=== PATIENT | male | born 1970 | race Caucasian/White ===

== ENCOUNTER 2024-11-09 06:26 | Day surgery (SDC) | payer OTHER, SELFPAY | END 2024-11-09 11:02 | disposition home or self-care (01) | LOC: GI 06:26 | PROVIDERS: ATTENDING PHYSICIAN Internal Medicine Gastroenterology | DX: Z12.11 Encounter for screening for malignant neoplasm of colon (principal); D12.2 Benign neoplasm of ascending colon; D12.0 Benign neoplasm of cecum; K64.8 Other hemorrhoids; K62.89 Other specified diseases of anus and rectum; Z83.719 Family history of colon polyps, unspecified | CPT/HCPCS: 45385; 45380; 88305 ==